=== PATIENT | female | born 1990 | race Two or more races ===

== ENCOUNTER 2016-11-21 19:24 | Emergency (ER) | payer OTHER ==
--- NOTE | 2016-11-21 19:38 | EDPHY ---
H & P Time Seen by Provider: 11/21/16 19:29 HPI/ROS: CHIEF COMPLAINT: Fall to the ground HISTORY OF PRESENT ILLNESS: The patient is a 26-year-old female who fell to the ground. She is currently in correction. She has been there for 2 years. She takes medication for anxiety. She states that she had an episode today where she was standing in her cell and suddenly fell to the ground. She did not trip. She denies chest pain or fainting. She denies loss of consciousness. She did have some twitching but she remembers it. It was not seizure-like activity. Only last for few seconds. She was not postictal. She is not incontinent. No signs of the mouth injury. No signs of head injury. She states she did hit her head on the sink going down. She denies headache. She denies palpitations. She denies recent illness. She states that she has had twitching in her tongue for the last several months for unknown reasons. REVIEW OF SYSTEMS: Constitutional: denies: chills, fever, recent illness, recent injury EENTM: denies: blurred vision, double vision, nose congestion Respiratory: denies: cough, shortness of breath Cardiac: denies: chest pain, irregular heart rate, lightheadedness, palpitations Gastrointestinal/Abdominal: denies: abdominal pain, diarrhea, nausea, vomiting, blood streaked stools Genitourinary: denies: dysuria, frequency, hematuria, pain Musculoskeletal: denies: joint pain, muscle pain Skin: denies: lesions, rash, jaundice, bruising Neurological: See HPI Hematologic/Lymphatic: denies: blood clots, easy bleeding, easy bruising Immunologic/allergic: denies: HIV/AIDS, transplant EXAM: GENERAL: Well-appearing, well-nourished and in no acute distress. HEAD: Atraumatic, normocephalic. EYES: Pupils equal round and reactive to light, extraocular movements intact, sclera anicteric, conjunctiva are normal. ENT: TMs normal, nares patent, oropharynx clear without exudates. Moist mucous membranes. NECK: Normal range of motion, supple without lymphadenopathy or JVD. LUNGS: Breath sounds clear to auscultation bilaterally and equal. No wheezes rales or rhonchi. HEART: Regular rate and rhythm without murmurs, rubs or gallops. ABDOMEN: Soft, nontender, normoactive bowel sounds. No guarding, no rebound. No masses appreciated. BACK: No CVA tenderness, no spinal tenderness, step-offs or deformities EXTREMITIES: Normal range of motion, no pitting or edema. No clubbing or cyanosis. NEUROLOGICAL: Cranial nerves II through XII grossly intact. Normal speech, normal gait. 5/5 strength, normal movement in all extremities, normal sensation PSYCH: Normal mood, normal affect. SKIN: Warm, dry, normal turgor, no visible rashes or lesions. Source: Patient Exam Limitations: No limitations - Medical/Surgical History Hx Asthma: No Hx Chronic Respiratory Disease: No Hx Diabetes: No Hx Cardiac Disease: No Hx Renal Disease: No Hx Cirrhosis: No - Family History Significant Family History: No pertinent family hx - Social History Alcohol Use: Sober Drug Use: None Constitutional: Initial Vital Signs Temperature (C) 37 C 11/21/16 19:25 Heart Rate 102 H 11/21/16 19:25 Respiratory Rate 18 11/21/16 19:25 Blood Pressure 113/86 H 11/21/16 19:25 O2 Sat (%) 98 11/21/16 19:25 O2 Delivery Mode Room Air Allergies/Adverse Reactions: No Known Allergies Allergy (Unverified 11/21/16 19:35) Home Medications: Medication Instructions Recorded AMITRIPTYLINE HCL 11/21/16 Atarax 11/21/16 FLUoxetine 11/21/16 GABAPENTIN 11/21/16 Wellbutrin 150mg SR (*) 11/21/16 buPROPion 11/21/16 Medical Decision Making - Diagnostics EKG Interpretation: An EKG obtained and was read and documented in trace view. Please see trace view for full reading and report. Sinus rhythm, no acute ischemic changes slightly prolonged QT interval Imaging: Results: CT scan of the head was obtained. The results of the study are negative. The study was read by Dr. Smith. I viewed the images myself on the PACS system. ED Course/Re-evaluation: The patient is completely well appearing. No sign of injury. I will check her electrolytes and EKG and head CT because of the trauma. This does not seem like a seizure. This more closely resembles a panic attack or anxiety. Discussed this with the patient. She initially was very calm but when we had this discussion began feeling anxious and began having her tremors. Patient's lab work , EKG and head CT are reassuring. Otherwise she is well appearing. I do not suspect seizure. I do not suspect stroke or syncope or cardiac arrhythmia. Think that this most likely represents anxiety versus a tick or possibly substance abuse or withdrawal. We will discharge her at this time have the patient follow up with her primary physician. Differential Diagnosis: Partial list of the Differential diagnosis considered include but were not limited to; anxiety, syncope, arrhythmia and although unlikely based on the history and physical exam, I also considered CVA, head trauma, seizure. I discussed these differential diagnoses and the plan with the patient as well as the usual and expected course. The patient understands that the diagnosis is provisional and that in medicine we are not always correct and that further workup is often warranted. Usual and customary warnings were given. All of the patient's questions were answered. The patient was instructed to return to the emergency department should the symptoms at all worsen or return, otherwise to followup with the physician as we discussed. - Data Points Laboratory Results: 11/21/16 19:47 POC Hgb 11.6 gm/dL L gm/dL (12.3-15.9) POC Hct 34 % L % (35.5-47.5) POC Sodium 143 mEq/L mEq/L (134-144) POC Potassium 3.6 mEq/L mEq/L (3.3-5.0) POC Chloride 102 mEq/L mEq/L (96-108) POC BUN 11 mg/dL mg/dL (7-23) POC Creatinine 0.8 mg/dL mg/dL (0.6-1.2) POC Glucose 92 mg/dL mg/dL (70-100) Point of Care Test Results: 11/21/16 19:47 POC Sodium 143 POC Potassium 3.6 POC Chloride 102 POC BUN 11 POC Creatinine 0.8 POC Glucose 92 Departure - Departure Disposition: Home, Routine, Self-Care Clinical Impression: Anxiety Condition: Fair Instructions: Anxiety (ED) Referrals: NONE *PRIMARY CARE P,. [Primary Care Provider] - As per Instructions Ally Palm MD [Medical Doctor] - As per Instructions
[2016-11-21 19:40] VITALS: RESP 18
--- NOTE | 2016-11-21 20:11 | CPEKG ---
Heart Rate: 96 RR Interval: 625 P-R Interval: 192 QRSD Interval: 98 QT Interval: 392 QTC Interval: 496 P Landis: 69 QRS Landis: -71 T Wave Landis: 75 EKG Severity - ABNORMAL ECG - EKG Impression: SINUS RHYTHM EKG Impression: LEFT AXIS DEVIATION EKG Impression: BORDERLINE T ABNORMALITIES, ANT-LAT LEADS EKG Impression: PROLONGED QT INTERVAL Electronically Signed By: Patrick Duval 21-Nov-2016 20:35:41
[2016-11-21 21:26] VITALS: BP 111/75; PULSE 93; TEMP 99; O2SAT 97
== END 2016-11-21 21:27 | disposition home or self-care (01) ==
DX: F41.9 Anxiety disorder, unspecified (principal); W18.39XA Other fall on same level, initial encounter; Y93.89 Activity, other specified
CPT/HCPCS: 82947-QW